=== PATIENT | female | born 1945 | race African-American/Black ===

== ENCOUNTER 2021-03-01 15:45 | Inpatient (IN) | payer MEDICARE, MEDICAID ==
[~2021-03-01] VITALS: Ht 154.9 cm; Wt 59.6 kg
[2021-03-01 16:41] LABS: BASOPHILS % 0.4 % (0.0-2.0); HEMATOCRIT. 36.2 % (36.0-48.0); HEMOGLOBIN. 11.6 g/dL (12.0-16.0); MEAN CORPUSCULAR HEMOGLOBIN 28.1 pg (28.0-32.0); MEAN CORPUSCULAR VOLUME 87.3 fL (81.0-99.0); MEAN PLATELET VOLUME 7.5 fl (7.4-10.4); MONOCYTES % 10.7 % (2.0-8.0); NEUTROPHILS % 46.9 % (40.0-76.0); PLATELET 355 x1000/uL (130-400); RED BLOOD CELL COUNT 4.14 mill/uL (4.2-5.4); RED CELL DISTRIBUTION WIDTH 14.2 % (11.6-14.6)
[2021-03-01 16:44] LABS: CHLORIDE 111 mEq/L (98-107)
[2021-03-01 16:48] LABS: ETHANOL BLOOD < 10 mg/dL
[2021-03-01] MEDS ORDERED: ASPIRIN 325MG EC TABLET PO ONE (17:45)
[2021-03-01 18:49] LABS: CLARITY URINE CLEAR (CLEAR); COLOR URINE YELLOW (YELLOW); KETONES URINE 1+ (NEGATIVE); LEUKOCYTE ESTERASE URINE NEGATIVE (NEGATIVE); NITRITE URINE NEGATIVE (NEGATIVE); OCCULT BLOOD URINE NEGATIVE (NEGATIVE); PH URINE >=9.0 (4.5-8.0); PROTEIN URINE NEGATIVE (NEGATIVE); SPECIFIC GRAVITY URINE 1.014 (1.005-1.030)
[2021-03-01 19:01] LABS: *AMPHETAMINES SCREEN URINE NEGATIVE (NEGATIVE); *BARBITURATES SCREEN URINE NEGATIVE (NEGATIVE); *BENZODIAZEPINES SCREEN URINE NEGATIVE (NEGATIVE); *COCAINE SCREEN URINE NEGATIVE (NEGATIVE); METHADONE URINE SCREEN NEGATIVE (NEGATIVE)
[2021-03-01 19:02] LABS: CANNABINOID URINE SCREEN NEGATIVE (NEGATIVE); OPIATES URINE SCREEN PRESUMTIVE POSITIVE (NEGATIVE); PHENCYCLIDINE URINE SCREEN NEGATIVE (NEGATIVE)
[2021-03-01] MEDS ORDERED: IOHEXOL-350 100 ML BOTTLE ONE (20:04)
[2021-03-01] MEDS ORDERED: ACETAMINOPHEN 325MG TABLET PO PRN (20:15)
[2021-03-01] MEDS ORDERED: CLONIDINE 0.1MG TABLET PO PRN (20:15)
[2021-03-01] MEDS ORDERED: DOCUSATE SODIUM 100MG CAPSULE PO PRN (20:15)
[2021-03-01] MEDS ORDERED: GUAIFENESIN 200MG/10ML SUGAR FREE UDC PO PRN (20:15)
[2021-03-01] MEDS ORDERED: MAGNESIUM/ALUMINUM HYDROXIDE/SIMETHICONE 30ML UDC PO PRN (20:15)
[2021-03-01] MEDS ORDERED: ONDANSETRON HCL 4MG/2ML INJ IV PRN (20:15)
[2021-03-02 00:04] VITALS: BP_SYST 115; BP_SYST 131; BP_DIAS 74
[2021-03-02] MEDS ORDERED: LAMO25TA9 PO (00:55)
[2021-03-02] MEDS ORDERED: QUET100T34 PO (00:55)
[2021-03-02] MEDS ORDERED: SERT25TA74 PO (00:55)
[2021-03-02] MEDS ORDERED: PANT20TA17 PO (00:55)
[2021-03-02] MEDS ORDERED: AMLO-243 PO (00:55)
[2021-03-02] MEDS: ENOXAPARIN 40MG/0.4ML SYR SUBCUT SCH ×2 (01:04→21:54)
[2021-03-02 04:00] VITALS: BP 114/51
[2021-03-02 07:24] LABS: BASOPHILS % 0.6 % (0.0-2.0); EOSINOPHILS % 5.3 % (0.0-5.0); HEMOGLOBIN. 11.8 g/dL (12.0-16.0); LYMPHOCYTES % 41.7 % (20.0-50.0); MEAN CORPUSCULAR HEMOGLOBIN 28.3 pg (28.0-32.0); MEAN CORPUSCULAR VOLUME 86.1 fL (81.0-99.0); MEAN PLATELET VOLUME 8.6 fl (7.4-10.4); MONOCYTES % 11.8 % (2.0-8.0); NEUTROPHILS % 40.6 % (40.0-76.0); PLATELET 320 x1000/uL (130-400); RED BLOOD CELL COUNT 4.18 mill/uL (4.2-5.4); RED CELL DISTRIBUTION WIDTH 14.2 % (11.6-14.6)
[2021-03-02 07:30] LABS: CHLORIDE 110 mEq/L (98-107)
[2021-03-02 07:40] LABS: LDL CHOLESTEROL 83 mg/dL (5-100)
[2021-03-02 07:42] LABS: HDL CHOLESTEROL 57 mg/dL (40-59)
[2021-03-02 08:00] VITALS: BP 144/80
[2021-03-02] MEDS: ASPIRIN 81MG EC TABLET PO SCH (09:54)
[2021-03-02] MEDS: AMLODIPINE 10MG TABLET PO SCH (09:55)
[2021-03-02] MEDS ORDERED: PANTOPRAZOLE 40MG DR TABLET PO SCH (11:00)
[2021-03-02] MEDS ORDERED: LACTULOSE 20G/30ML UDC PO NR (11:00)
[2021-03-02 12:00] VITALS: BP 130/79
[2021-03-02] MEDS: POLYETHYLENE GLYCOL 3350 (17GM) 1 DOSE PACK PO SCH (12:27)
[2021-03-02] MEDS: PANTOPRAZOLE SODIUM 40 MG/VIAL IV SCH (12:27)
[2021-03-02] MEDS: SERTRALINE HCL 25MG TABLET PO SCH (12:45)
[2021-03-02 16:00] VITALS: BP 129/63
[2021-03-02 20:00] VITALS: BP 111/63
[2021-03-02] MEDS: QUETIAPINE FUMARATE 50MG TABLET PO SCH ×2 (21:00→21:55)
[2021-03-03] VITALS: BP 121/69
[2021-03-03 04:00] VITALS: BP 129/78
[2021-03-03 08:00] VITALS: BP 125/77
[2021-03-03] MEDS: PANTOPRAZOLE SODIUM 40 MG/VIAL IV SCH (09:01)
[2021-03-03] MEDS: POLYETHYLENE GLYCOL 3350 (17GM) 1 DOSE PACK PO SCH (09:01)
[2021-03-03] MEDS: SERTRALINE HCL 25MG TABLET PO SCH (09:01)
[2021-03-03] MEDS: AMLODIPINE 10MG TABLET PO SCH (09:01)
[2021-03-03] MEDS: ASPIRIN 81MG EC TABLET PO SCH (09:01)
== END 2021-03-03 10:05 | disposition left against medical advice (07) | DRG 69 ==
LOC: ER 15:45 → EDBEDREQ 16:50 → EDBEDREQTM 16:50 → EDBEDREQSVC 16:50 → EDBEDREQTM 18:49 → EDBEDREQ 18:49 → ENRESERV 23:20 → 7EST 23:57
PROVIDERS: ADMIT Hospitalist; ATTEND Hospitalist
DX: G45.9 Transient cerebral ischemic attack, unspecified (principal); I10 Essential (primary) hypertension; K59.00 Constipation, unspecified; D63.8 Anemia in other chronic diseases classified elsewhere; Z20.822 Contact with and (suspected) exposure to COVID-19; G31.9 Degenerative disease of nervous system, unspecified; Z88.0 Allergy status to penicillin; Z79.899 Other long term (current) drug therapy
CPT/HCPCS: 36415; 70496; 70498; 70551; 71045; 80053; 80061; 80305; 80320; 81003; 84484; 85025; 87426; 93005; 99291; C1893; C9113; J1650; J2405; Q9967; G0480

== ENCOUNTER 2023-04-21 09:51 | Emergency (ER) | payer OTHER, MEDICAID ==
[~2023-04-21] VITALS: Ht 165.1 cm; Wt 70.0 kg
[~2023-04-21 09:51] MED LIST: AMLO-243 PO; LAMO25TA9 PO; PANT20TA17 PO; QUET100T34 PO; SERT25TA74 PO
[2023-04-21 09:54] VITALS: BP 121/77; TEMP 98.4; O2SAT 98
[2023-04-21 11:51] LABS: BG BASE EXCESS -1.3 mmol/L (-2.0-2.0); BG CARBOXYHEMOGLOBIN 0.6 % (0.5-1.5); BG DEOXYHEMOGLOBIN 0.2 % (0.0-5.0); BG HCO3 ACT 20.3 mmol/L (22.0-26.0); BG METHEMOGLOBIN 0.3 % (0.0-1.5); BG OXYGEN SATURATION 99.8 % (92.0-98.5); BG OXYHEMOGLOBIN 98.9 % (94.0-97.0); BG PCO2 26.3 mmHg (35.0-45.0); BG PH 7.505 (7.350-7.450); BG PO2 241.5 mmHg (75.0-100.0); BG SAMPLE SITE RIGHT RADIAL; BG TOTAL HEMOGLOBIN 14.2 g/dL (12.0-18.0); BG VENT MODE MASK - NRB
[2023-04-21] MEDS ORDERED: LORAZEPAM 0.5MG TABLET PO ONE (12:15)
[2023-04-21 13:51] VITALS: PULSE 76; RESP 20
== END 2023-04-21 13:50 | disposition home or self-care (01) ==
LOC: ER 10:05
DX: J70.5 Respiratory conditions due to smoke inhalation (principal); I10 Essential (primary) hypertension; F41.9 Anxiety disorder, unspecified
CPT/HCPCS: 36600; 82375; 82805; 99283

== ENCOUNTER 2024-04-25 19:58 | Emergency (ER) | payer OTHER, MEDICAID ==
[~2024-04-25] VITALS: Ht 154.9 cm; Wt 57.0 kg
[2024-04-25 20:09] VITALS: BP 133/82; TEMP 98; O2SAT 98
[2024-04-25 20:11] VITALS: PULSE 80; RESP 20; O2SAT 98
== END 2024-04-25 21:33 | disposition home or self-care (01) ==
LOC: ER 19:58
DX: S63.287A Dislocation of proximal interphalangeal joint of left little finger, initial encounter (principal); I10 Essential (primary) hypertension; Z88.0 Allergy status to penicillin; Z79.899 Other long term (current) drug therapy; W17.89XA Other fall from one level to another, initial encounter; Y93.89 Activity, other specified; Y92.89 Other specified places as the place of occurrence of the external cause; Y99.8 Other external cause status
CPT/HCPCS: 26770; 73140; 99152; 99285